=== PATIENT | female | born 2000 | race African-American/Black ===

== ENCOUNTER 2021-11-05 15:23 | Emergency (ER) | payer OTHER ==
[~2021-11-05] VITALS: Ht 172.7 cm; Wt 139.0 kg
[2021-11-05 15:36] VITALS: BP 133/85
[2021-11-05] MEDS ORDERED: INDERAL XL80 MG (15:45)
[2021-11-05] MEDS ORDERED: ALYACEN 1/35 PO (15:45)
[2021-11-05] MEDS ORDERED: BUPROPION150 M3 PO (15:45)
[2021-11-05] MEDS ORDERED: ADVAIR DISK1 INH (15:45)
[2021-11-05] MEDS ORDERED: GABAPENTIN100 MG PO (15:46)
[2021-11-05] MEDS ORDERED: FERROUS SULF325 M3 PO (15:46)
[2021-11-05 16:26] LABS: HEMATOCRIT 41.8 % (37.0-47.0); HEMOGLOBIN 13.5 g/dl (12.0-16.0); IMMATURE GRANULOCYTES 0.2 % (0.0-5.0); MEAN CELL VOLUME 84.3 fL CALC (80.0-100.0); MEAN CORPUSCULAR HGB 27.2 pG CALC (26.0-32.0); MEAN CORPUSCULAR HGB CONC 32.3 g/dL CAL (32.0-36.0); NEUT# 1.96 thou/uL (2.00-7.15); RED BLOOD COUNT 4.96 mill/uL (4.20-5.60); RED CELL DISTRI WIDTH 13.6 % (11.5-15.5)
[2021-11-05 16:37] LABS: ALBUMIN 4.3 g/dL (3.2-5.0); ALKALINE PHOSPHATASE 94 u/l (38-126); ANION GAP 13 (6-22 (CALC)); BILIRUBIN, TOTAL 0.3 mg/dL (0.0-1.4); BUN 14 mg/dL (7-17); BUN/CREATININE RATIO 23 (12-20 (CALC)); CARBON DIOXIDE 28 mmol/l (22-30); CHLORIDE 102 mmol/l (95-108); CREATININE 0.6 mg/dL (0.5-1.0); GFR FOR AFR.AMER. > 60 ML/MIN (>=60 (CALC)); GFR OTHER RACES > 60 ML/MIN (>=60 (CALC)); POTASSIUM 4.4 mmol/l (3.5-5.1); SGOT/AST 21 u/l (14-36); SODIUM 139 mmol/l (137-146); TOTAL PROTEIN 8.3 g/dL (6.3-8.2)
[2021-11-05] MEDS ORDERED: PREDNISONE20 MG PO (17:47)
[2021-11-05] MEDS ORDERED: PROMETHAZINE/COD1 ML PO (17:47)
[2021-11-05 17:51] VITALS: BP 133/85
== END 2021-11-05 17:58 | disposition home or self-care (01) ==
LOC: ED 15:23
PROVIDERS: Internal Medicine
DX: J40 Bronchitis, not specified as acute or chronic (principal); J98.4 Other disorders of lung; U09.9 Post COVID-19 condition, unspecified; E66.9 Obesity, unspecified

== ENCOUNTER 2022-12-04 12:02 | Emergency (ER) | payer OTHER ==
[~2022-12-04] VITALS: Ht 172.7 cm; Wt 140.0 kg
[~2022-12-04 12:02] MED LIST: ADVAIR DISK1 INH; ALYACEN 1/35 PO; BUPROPION150 M3 PO; FERROUS SULF325 M3 PO; GABAPENTIN100 MG PO; INDERAL XL80 MG; PREDNISONE20 MG PO; PROMETHAZINE/COD1 ML PO
[2022-12-04 13:02] VITALS: BP 120/86
[2022-12-04 13:16] VITALS: BP 131/67
[2022-12-04 13:35] LABS: BASO% 0.2 % (0-3); EOS% 0.2 % (0-8); HEMATOCRIT 42.1 % (37.0-47.0); HEMOGLOBIN 13.5 g/dl (12.0-16.0); IMMATURE GRANULOCYTES 0.6 % (0.0-5.0); MEAN CELL VOLUME 84.4 fL CALC (80.0-100.0); MEAN CORPUSCULAR HGB 27.1 pG CALC (26.0-32.0); MEAN CORPUSCULAR HGB CONC 32.1 g/dL CAL (32.0-36.0); MONO% 13.9 % (2-13); NEUT# 3.36 thou/uL (2.00-7.15); NEUT% 63.1 % (42-76); RED BLOOD COUNT 4.99 mill/uL (4.20-5.60)
[2022-12-04 13:53] LABS: HCG SERUM/URINE (NEG/POS) NEGATIVE (NEGATIVE)
[2022-12-04 13:55] LABS: ALBUMIN 4.3 g/dL (3.2-5.0); ALKALINE PHOSPHATASE 92 u/l (38-126); BUN 11 mg/dL (7-17); BUN/CREATININE RATIO 16 (12-20 (CALC)); CHLORIDE 104 mmol/l (95-108); CREATININE 0.7 mg/dL (0.5-1.0); GFR FOR AFR.AMER. > 60 ML/MIN (>=60 (CALC)); GFR OTHER RACES > 60 ML/MIN (>=60 (CALC)); POTASSIUM 4.4 mmol/l (3.5-5.1); SGOT/AST 33 u/l (14-36); SODIUM 135 mmol/l (137-146); TOTAL PROTEIN 8.6 g/dL (6.3-8.2)
[2022-12-04 13:59] LABS: ANION GAP 13 (6-22 (CALC)); BILIRUBIN, TOTAL 0.7 mg/dL (0.02-1.3); CARBON DIOXIDE 22 mmol/l (22-30)
[2022-12-04] MEDS ORDERED: PAXLOVID PO (14:06)
[2022-12-04] MEDS ORDERED: ZOFRAN4 MG/TAB PO (14:06)
[2022-12-04 14:12] VITALS: BP 106/73
[2022-12-04 14:16] VITALS: BP 121/74
[2022-12-04 15:57] VITALS: BP 106/73
== END 2022-12-04 16:04 | disposition home or self-care (01) ==
LOC: ED 12:02
PROVIDERS: Family Medicine
DX: U07.1 COVID-19 (principal); R05.9 Cough, unspecified; R53.83 Other fatigue; R50.9 Fever, unspecified; E66.01 Morbid (severe) obesity due to excess calories